=== PATIENT | female | born 1940 | race Caucasian/White ===

== ENCOUNTER 2016-07-15 19:45 | Inpatient (IN) | payer OTHER ==
[~2016-07-15] VITALS: Ht 162.6 cm; Wt 75.5 kg
[~2016-07-15 19:45] MED LIST: DICL100G8 EXT; HYDR12.53 PO; HYDR200T PO; LOSA1TAB16 PO; LOVA20TA2 PO; METF10002 PO; OMEP-110 PO; VIT1CAPS10 PO
[2016-07-15] MEDS ORDERED: LEVO500T33 PO (20:15)
[2016-07-15] MEDS ORDERED: CEFT1VIA6 IM (20:18)
[2016-07-15] MEDS ORDERED: SPIR50TA2 PO (20:18)
[2016-07-15] MEDS ORDERED: VIT1TABL32 PO (20:18)
[2016-07-15] MEDS ORDERED: GUAI600T53 PO (20:27)
[2016-07-15] MEDS ORDERED: OMEP-110 PO (20:27)
[2016-07-15] MEDS ORDERED: CHOL500014 PO (20:27)
[2016-07-15] MEDS ORDERED: IPRA3AMP INH (20:27)
[2016-07-15] MEDS ORDERED: SODI453. PO (20:27)
[2016-07-15] MEDS ORDERED: NYST1000 PO (20:27)
[2016-07-15] MEDS ORDERED: SENN-31 PO (20:27)
[2016-07-15] MEDS ORDERED: CYAN250013 PO (20:27)
[2016-07-15] MEDS ORDERED: VANCOMYCIN PMX 1GM/200ML 200 ML IVPB ONE (20:30)
[2016-07-15] MEDS ORDERED: PIPERACILLIN/TAZO/PMX 3.375GM 50 ML IVPB ONE (20:30)
[2016-07-15] MEDS ORDERED: VANCOMYCIN PER PHARMACY IV ONE (20:30)
[2016-07-15] MEDS ORDERED: SODIUM CHLORIDE FLUSH 10ML SYR IVF ONE (20:30)
[2016-07-15] MEDS ORDERED: PIPERACILLIN/TAZO/PMX 3.375GM 50 ML ONE (20:35)
[2016-07-15 21:14] LABS: HEMOGLOBIN 11.8 g/dL (11.7-16.4)
[2016-07-15 21:27] LABS: BLOOD UREA NITROGEN 35 mg/dL (7-18)
[2016-07-15 21:35] LABS: IS PT STATUS REG ER OR PRE ER? YES
[2016-07-15] MEDS ORDERED: VANCOMYCIN PER PHARMACY MC PRN (22:30)
[2016-07-15] MEDS ORDERED: FUROSEMIDE 40 MG/4 ML IV ONE (22:30)
[2016-07-15] MEDS ORDERED: POTASSIUM CHLORIDE 20 MEQ TAB.ER.PRT PO ONE (22:30)
[2016-07-15] MEDS ORDERED: MORPHINE SULFATE 4 MG/ML, 1ML IVPush PRN (23:00)
[2016-07-15] MEDS ORDERED: PROMETHAZINE 25 MG/ML, 1ML IM PRN (23:00)
[2016-07-15] MEDS ORDERED: ACETAMINOPHEN 325 MG TABLET PO PRN (23:00)
[2016-07-15] MEDS ORDERED: ONDANSETRON 2MG/ML, 2ML IVP PRN (23:00)
[2016-07-15] MEDS ORDERED: OXYcodone IR 5MG TABLET PO PRN (23:00)
[2016-07-15] MEDS ORDERED: ZOLPIDEM 5MG TABLET PO PRN (23:00)
[2016-07-15] MEDS ORDERED: ENOXAPARIN 40 MG/0.4 ML SQ SCH (23:00)
[2016-07-15 23:17] VITALS: BP 155/75
[2016-07-15] MEDS ORDERED: PHARMACOKINETIC CONSULTATION MC ONE (23:45)
[2016-07-15] MEDS ORDERED: PHARMACOKINETIC MONITORING MC PRN (23:45)
[2016-07-16] MEDS: PIPERACILLIN/TAZO/PMX 4.5GM 100 ML IV SCH ×4 (00:24→19:47)
[2016-07-16 02:02] VITALS: BP 108/61
[2016-07-16 04:27] VITALS: BP 155/75
[2016-07-16 04:57] LABS: HEMOGLOBIN 12.2 g/dL (11.7-16.4)
[2016-07-16 05:11] LABS: BLOOD UREA NITROGEN 36 mg/dL (7-18)
[2016-07-16 05:14] LABS: ASPARTATE AMINO TRANSFERASE 31 U/L (15-37)
[2016-07-16 07:18] VITALS: BP 91/47
[2016-07-16] MEDS ORDERED: POTASSIUM CHLORIDE 20 MEQ TAB.ER.PRT PO SCH (08:00)
[2016-07-16] MEDS ORDERED: SODIUM BICARBONATE 4.2%, 5ML ONE (08:00)
[2016-07-16] MEDS ORDERED: LIDOCAINE 2%, 20ML ONE (08:00)
[2016-07-16] MEDS ORDERED: NYSTATIN 500,000 UNITS/5 ML UDC PO SCH (09:00)
[2016-07-16] MEDS ORDERED: HYDROCHLOROTHIAZIDE 12.5 MG CAPSULE PO SCH (09:00)
[2016-07-16] MEDS: GUAIFENESIN ER 600 MG TABLET PO SCH ×3 (09:00→22:04)
[2016-07-16] MEDS ORDERED: FUROSEMIDE 40 MG/4 ML IV SCH (09:00)
[2016-07-16 09:27] LABS: CYTOLOGY BODY FLUID RECD INTO PATHOLOGY; CYTOLOGY BODY FLUID SOURCE PLEURAL FLUID
[2016-07-16] MEDS: HYDROXYCHLOROQUINE 200 MG TABLET PO SCH (11:03)
[2016-07-16] MEDS: OMEPRAZOLE 20 MG CAPSULE.DR PO SCH ×2 (11:03→22:04)
[2016-07-16] MEDS: SENNA/DOCUSATE TABLET PO SCH (11:04)
[2016-07-16] MEDS: SODIUM CHLORIDE FLUSH 10ML SYR IVF SCH ×2 (11:22→21:00)
[2016-07-16 13:30] VITALS: BP 87/54
[2016-07-16 17:05] LABS: CYTOLOGY BODY FLUID RECD INTO PATHOLOGY; CYTOLOGY BODY FLUID SOURCE PERITONEAL FLUID
[2016-07-16 19:14] VITALS: BP 91/60
[2016-07-16] MEDS: VANCOMYCIN 1,300 MG in SODIUM CHLORIDE 0.9% 250 ML IV SCH (22:56)
[2016-07-17] MEDS: PIPERACILLIN/TAZO/PMX 4.5GM 100 ML IV SCH ×4 (00:39→20:32)
[2016-07-17 02:00] VITALS: BP 91/57
[2016-07-17 04:47] LABS: HEMOGLOBIN 11.4 g/dL (11.7-16.4)
[2016-07-17 04:55] LABS: ASPARTATE AMINO TRANSFERASE 27 U/L (15-37); BLOOD UREA NITROGEN 44 mg/dL (7-18)
[2016-07-17 05:08] VITALS: BP_SYST 89; BP_SYST 92; BP_DIAS 56; BP_DIAS 59
[2016-07-17] MEDS ORDERED: SODIUM CHLORIDE 0.9%, 500ML IVBOLUS ONE (06:00)
[2016-07-17 07:20] VITALS: BP 91/55
[2016-07-17] MEDS: GUAIFENESIN ER 600 MG TABLET PO SCH ×2 (08:16→20:34)
[2016-07-17] MEDS: OMEPRAZOLE 20 MG CAPSULE.DR PO SCH ×2 (08:16→20:34)
[2016-07-17] MEDS: HYDROXYCHLOROQUINE 200 MG TABLET PO SCH (08:16)
[2016-07-17] MEDS: SODIUM CHLORIDE FLUSH 10ML SYR IVF SCH ×2 (08:17→20:32)
[2016-07-17] MEDS: SENNA/DOCUSATE TABLET PO SCH (08:17)
[2016-07-17] MEDS ORDERED: SODIUM CHLORIDE 0.9% 500 ML IV SCH (08:30)
[2016-07-17] MEDS: SODIUM CHLORIDE 0.9% 1,000 ML IV SCH (10:25)
[2016-07-17 13:33] VITALS: BP 102/63
[2016-07-17 17:46] VITALS: BP 98/59
[2016-07-17 19:25] VITALS: BP 108/68
[2016-07-17] MEDS: CHOLESTYRAMINE LIGHT 4GM PACKET PO SCH ×2 (20:32→21:00)
[2016-07-17] MEDS: ENOXAPARIN 30 MG/0.3 ML SQ SCH (22:37)
[2016-07-18 01:18] VITALS: BP 113/73
[2016-07-18] MEDS: PIPERACILLIN/TAZO/PMX 4.5GM 100 ML IV SCH ×4 (01:51→19:53)
[2016-07-18] MEDS: SODIUM CHLORIDE 0.9% 1,000 ML IV SCH ×3 (01:51→22:29)
[2016-07-18 05:33] LABS: HEMOGLOBIN 10.8 g/dL (11.7-16.4)
[2016-07-18 05:43] LABS: BLOOD UREA NITROGEN 51 mg/dL (7-18)
[2016-07-18 06:33] VITALS: BP 103/69
[2016-07-18] MEDS: GUAIFENESIN ER 600 MG TABLET PO SCH ×2 (08:07→19:54)
[2016-07-18] MEDS: HYDROXYCHLOROQUINE 200 MG TABLET PO SCH (08:08)
[2016-07-18] MEDS: SENNA/DOCUSATE TABLET PO SCH (08:08)
[2016-07-18] MEDS: OMEPRAZOLE 20 MG CAPSULE.DR PO SCH ×2 (08:08→19:53)
[2016-07-18] MEDS ORDERED: CHOLESTYRAMINE LIGHT 4GM PACKET PO SCH (09:00)
[2016-07-18] MEDS: VANCOMYCIN 1,300 MG in SODIUM CHLORIDE 0.9% 250 ML IV SCH (10:00)
[2016-07-18] MEDS: CHOLESTYRAMINE LIGHT 4GM PACKET PO SCH ×2 (11:15→19:54)
[2016-07-18] MEDS: SODIUM CHLORIDE FLUSH 10ML SYR IVF SCH ×2 (11:15→19:53)
[2016-07-18 12:14] VITALS: BP 91/60
[2016-07-18 18:48] VITALS: BP 103/65
[2016-07-18] MEDS: ENOXAPARIN 30 MG/0.3 ML SQ SCH (22:29)
[2016-07-19 01:20] VITALS: BP 110/69
[2016-07-19] MEDS: PIPERACILLIN/TAZO/PMX 4.5GM 100 ML IV SCH ×3 (02:05→14:02)
[2016-07-19 04:45] LABS: HEMOGLOBIN 11.2 g/dL (11.7-16.4)
[2016-07-19 05:05] LABS: BLOOD UREA NITROGEN 46 mg/dL (7-18)
[2016-07-19 06:30] VITALS: BP 107/67
[2016-07-19] MEDS ORDERED: LOPERAMIDE 2 MG CAPSULE PO ONE (08:00)
[2016-07-19] MEDS: SODIUM CHLORIDE 0.9% 1,000 ML IV SCH ×2 (08:06→19:49)
[2016-07-19] MEDS: HYDROXYCHLOROQUINE 200 MG TABLET PO SCH (08:07)
[2016-07-19] MEDS: SODIUM CHLORIDE FLUSH 10ML SYR IVF SCH ×2 (08:07→19:49)
[2016-07-19] MEDS: OMEPRAZOLE 20 MG CAPSULE.DR PO SCH ×2 (08:08→22:24)
[2016-07-19] MEDS: SENNA/DOCUSATE TABLET PO SCH (08:08)
[2016-07-19] MEDS: GUAIFENESIN ER 600 MG TABLET PO SCH ×2 (08:08→22:23)
[2016-07-19] MEDS: POTASSIUM CHLORIDE 20 MEQ TAB.ER.PRT PO SCH ×3 (10:27→22:23)
[2016-07-19] MEDS: CHOLESTYRAMINE LIGHT 4GM PACKET PO SCH ×2 (11:47→22:24)
[2016-07-19 13:03] VITALS: BP 108/72
[2016-07-19 19:20] VITALS: BP 101/64
[2016-07-19] MEDS: PIPERACILLIN/TAZO/PMX 3.375GM 50 ML IV SCH (19:49)
[2016-07-19] MEDS: ENOXAPARIN 30 MG/0.3 ML SQ SCH (22:24)
[2016-07-20 00:42] VITALS: BP 99/66
[2016-07-20] MEDS: PIPERACILLIN/TAZO/PMX 3.375GM 50 ML IV SCH ×4 (02:46→20:00)
[2016-07-20 05:07] LABS: HEMOGLOBIN 11.8 g/dL (11.7-16.4)
[2016-07-20] MEDS: SODIUM CHLORIDE 0.9% 1,000 ML IV SCH ×2 (05:13→15:00)
[2016-07-20 05:18] LABS: ASPARTATE AMINO TRANSFERASE 25 U/L (15-37); BLOOD UREA NITROGEN 39 mg/dL (7-18)
[2016-07-20 06:45] VITALS: BP 100/66
[2016-07-20] MEDS: SODIUM CHLORIDE FLUSH 10ML SYR IVF SCH ×2 (09:00→20:00)
[2016-07-20] MEDS: SENNA/DOCUSATE TABLET PO SCH (09:00)
[2016-07-20] MEDS: POTASSIUM CHLORIDE 20 MEQ TAB.ER.PRT PO SCH ×2 (10:45→19:59)
[2016-07-20] MEDS: GUAIFENESIN ER 600 MG TABLET PO SCH ×2 (10:45→20:00)
[2016-07-20] MEDS: OMEPRAZOLE 20 MG CAPSULE.DR PO SCH ×2 (10:46→20:00)
[2016-07-20] MEDS: HYDROXYCHLOROQUINE 200 MG TABLET PO SCH (10:46)
[2016-07-20] MEDS: CHOLESTYRAMINE LIGHT 4GM PACKET PO SCH ×2 (10:46→20:01)
[2016-07-20] MEDS ORDERED: VANCOMYCIN 1,400 MG in SODIUM CHLORIDE 0.9% 250 ML IV ONE (11:00)
[2016-07-20] MEDS: LOPERAMIDE 2 MG CAPSULE PO PRN (11:57)
[2016-07-20] MEDS ORDERED: SODIUM BICARBONATE 4.2%, 5ML ONE (12:26)
[2016-07-20] MEDS ORDERED: LIDOCAINE 1%, 20ML ONE (12:26)
[2016-07-20 14:39] VITALS: BP 102/69
[2016-07-20] MEDS ORDERED: MAGNESIUM SULFATE PMX 2GM/50ML 50 ML IV ONE (15:30)
[2016-07-20 18:30] VITALS: BP 108/69
[2016-07-20] MEDS: ALBUMIN HUMAN 25% 100 ML IV SCH (22:20)
[2016-07-20] MEDS: ENOXAPARIN 30 MG/0.3 ML SQ SCH (22:21)
[2016-07-21 01:30] VITALS: BP 92/59
[2016-07-21] MEDS: SODIUM CHLORIDE 0.9% 1,000 ML IV SCH ×3 (01:52→23:19)
[2016-07-21] MEDS: PIPERACILLIN/TAZO/PMX 3.375GM 50 ML IV SCH ×4 (01:53→20:54)
[2016-07-21 06:17] LABS: ASPARTATE AMINO TRANSFERASE 19 U/L (15-37); BLOOD UREA NITROGEN 37 mg/dL (7-18)
[2016-07-21 06:33] VITALS: BP 111/72
[2016-07-21] MEDS: SENNA/DOCUSATE TABLET PO SCH (09:00)
[2016-07-21] MEDS: FUROSEMIDE 20 MG/2 ML IV SCH ×2 (09:00)
[2016-07-21] MEDS: POTASSIUM CHLORIDE 20 MEQ TAB.ER.PRT PO SCH ×2 (09:10→17:56)
[2016-07-21] MEDS: GUAIFENESIN ER 600 MG TABLET PO SCH ×2 (09:10→20:55)
[2016-07-21] MEDS: SODIUM CHLORIDE FLUSH 10ML SYR IVF SCH ×2 (09:11→20:55)
[2016-07-21] MEDS: HYDROXYCHLOROQUINE 200 MG TABLET PO SCH (09:11)
[2016-07-21] MEDS: OMEPRAZOLE 20 MG CAPSULE.DR PO SCH ×2 (09:11→23:19)
[2016-07-21] MEDS: CHOLESTYRAMINE LIGHT 4GM PACKET PO SCH ×2 (10:20→20:55)
[2016-07-21] MEDS: ALBUMIN HUMAN 25% 100 ML IV SCH (10:20)
[2016-07-21] MEDS: LOPERAMIDE 2 MG CAPSULE PO PRN (11:17)
[2016-07-21] MEDS ORDERED: LIDOCAINE 2%, 20ML ONE (12:14)
[2016-07-21] MEDS ORDERED: SODIUM BICARBONATE 4.2%, 5ML ONE (12:14)
[2016-07-21 13:40] VITALS: BP 103/68
[2016-07-21 19:50] VITALS: BP 107/72
[2016-07-21] MEDS: ENOXAPARIN 40 MG/0.4 ML SQ SCH (20:54)
[2016-07-22] MEDS: PIPERACILLIN/TAZO/PMX 3.375GM 50 ML IV SCH ×4 (01:53→21:14)
[2016-07-22 02:00] VITALS: BP 101/63
[2016-07-22 04:54] LABS: HEMOGLOBIN 10.4 g/dL (11.7-16.4)
[2016-07-22 06:28] LABS: BLOOD UREA NITROGEN 31 mg/dL (7-18)
[2016-07-22 06:51] VITALS: BP 113/69
[2016-07-22] MEDS: SENNA/DOCUSATE TABLET PO SCH (09:00)
[2016-07-22] MEDS ORDERED: VANCOMYCIN PMX 1GM/200ML 200 ML IVPB ONE (09:00)
[2016-07-22] MEDS: OMEPRAZOLE 20 MG CAPSULE.DR PO SCH ×2 (09:27→21:14)
[2016-07-22] MEDS: SODIUM CHLORIDE 0.9% 1,000 ML IV SCH ×2 (09:27→21:29)
[2016-07-22] MEDS: LOPERAMIDE 2 MG CAPSULE PO PRN ×2 (09:27→16:10)
[2016-07-22] MEDS: CHOLESTYRAMINE LIGHT 4GM PACKET PO SCH ×2 (09:27→19:38)
[2016-07-22] MEDS: HYDROXYCHLOROQUINE 200 MG TABLET PO SCH (09:28)
[2016-07-22] MEDS: POTASSIUM CHLORIDE 20 MEQ TAB.ER.PRT PO SCH ×2 (09:28→16:08)
[2016-07-22] MEDS: SODIUM CHLORIDE FLUSH 10ML SYR IVF SCH ×2 (09:28→21:15)
[2016-07-22] MEDS: GUAIFENESIN ER 600 MG TABLET PO SCH ×2 (09:28→21:14)
[2016-07-22] MEDS: ALBUMIN HUMAN 25% 100 ML IV SCH (11:02)
[2016-07-22 12:20] VITALS: BP 117/68
[2016-07-22] MEDS: FUROSEMIDE 20 MG/2 ML IV SCH (12:28)
[2016-07-22 15:26] VITALS: BP 112/71
[2016-07-22 19:31] VITALS: BP 124/74
[2016-07-22] MEDS: ENOXAPARIN 40 MG/0.4 ML SQ SCH (21:14)
[2016-07-22] MEDS: LORazepam 0.5MG TABLET PO PRN (21:14)
[2016-07-23] MEDS: PIPERACILLIN/TAZO/PMX 3.375GM 50 ML IV SCH ×4 (03:01→21:43)
[2016-07-23 03:07] VITALS: BP 130/82
[2016-07-23 04:37] LABS: BLOOD UREA NITROGEN 23 mg/dL (7-18)
[2016-07-23 06:38] VITALS: BP 131/83
[2016-07-23] MEDS: SODIUM CHLORIDE 0.9% 1,000 ML IV SCH (07:00)
[2016-07-23] MEDS: SENNA/DOCUSATE TABLET PO SCH (07:27)
[2016-07-23] MEDS: ALBUMIN HUMAN 25% 100 ML IV SCH (07:38)
[2016-07-23] MEDS: POTASSIUM CHLORIDE 20 MEQ TAB.ER.PRT PO SCH ×2 (07:39→16:01)
[2016-07-23] MEDS: OMEPRAZOLE 20 MG CAPSULE.DR PO SCH ×2 (07:39→21:43)
[2016-07-23] MEDS: HYDROXYCHLOROQUINE 200 MG TABLET PO SCH (07:39)
[2016-07-23] MEDS: GUAIFENESIN ER 600 MG TABLET PO SCH ×2 (07:39→21:54)
[2016-07-23] MEDS: SODIUM CHLORIDE FLUSH 10ML SYR IVF SCH ×2 (07:40→21:00)
[2016-07-23] MEDS: CHOLESTYRAMINE LIGHT 4GM PACKET PO SCH ×2 (09:17→21:45)
[2016-07-23] MEDS: FUROSEMIDE 20 MG/2 ML IV SCH (09:17)
[2016-07-23] MEDS: GUAIFENESIN/DM 200-20MG, 10ML UDC PO PRN (10:19)
[2016-07-23] MEDS ORDERED: LORazepam 1MG TABLET ONE (12:23)
[2016-07-23] MEDS: LORazepam 0.5MG TABLET PO PRN ×2 (12:26→21:54)
[2016-07-23 14:14] VITALS: BP 132/80
[2016-07-23 18:41] VITALS: BP 131/72
[2016-07-23] MEDS: ENOXAPARIN 40 MG/0.4 ML SQ SCH (21:45)
[2016-07-24] MEDS: PIPERACILLIN/TAZO/PMX 3.375GM 50 ML IV SCH ×4 (03:28→21:45)
[2016-07-24 03:47] VITALS: BP 127/80
[2016-07-24] MEDS: GUAIFENESIN/DM 200-20MG, 10ML UDC PO PRN (03:54)
[2016-07-24] MEDS: LORazepam 0.5MG TABLET PO PRN ×3 (03:54→20:11)
[2016-07-24 05:17] LABS: BLOOD UREA NITROGEN 21 mg/dL (7-18)
[2016-07-24 06:42] VITALS: BP 117/74
[2016-07-24] MEDS: SENNA/DOCUSATE TABLET PO SCH (08:06)
[2016-07-24] MEDS: FUROSEMIDE 20 MG/2 ML IV SCH ×3 (09:00→22:24)
[2016-07-24] MEDS: POTASSIUM CHLORIDE 20 MEQ TAB.ER.PRT PO SCH ×2 (09:08→16:21)
[2016-07-24] MEDS: HYDROXYCHLOROQUINE 200 MG TABLET PO SCH (09:09)
[2016-07-24] MEDS: GUAIFENESIN ER 600 MG TABLET PO SCH ×2 (09:09→20:11)
[2016-07-24] MEDS: OMEPRAZOLE 20 MG CAPSULE.DR PO SCH ×2 (09:09→20:11)
[2016-07-24] MEDS: SODIUM CHLORIDE FLUSH 10ML SYR IVF SCH ×2 (09:10→20:11)
[2016-07-24] MEDS: CHOLESTYRAMINE LIGHT 4GM PACKET PO SCH ×2 (10:30→20:11)
[2016-07-24 13:20] VITALS: BP 124/72
[2016-07-24 18:34] VITALS: BP 151/86
[2016-07-24] MEDS: ENOXAPARIN 40 MG/0.4 ML SQ SCH (21:45)
[2016-07-25 01:58] VITALS: BP 125/76
[2016-07-25 02:58] VITALS: BP 121/73
[2016-07-25] MEDS: PIPERACILLIN/TAZO/PMX 3.375GM 50 ML IV SCH ×3 (03:47→12:32)
[2016-07-25 05:04] LABS: ASPARTATE AMINO TRANSFERASE 21 U/L (15-37); BLOOD UREA NITROGEN 21 mg/dL (7-18)
[2016-07-25] MEDS: GUAIFENESIN ER 600 MG TABLET PO SCH ×2 (08:36→19:45)
[2016-07-25] MEDS: OMEPRAZOLE 20 MG CAPSULE.DR PO SCH ×2 (08:37→19:45)
[2016-07-25] MEDS: POTASSIUM CHLORIDE 20 MEQ TAB.ER.PRT PO SCH (08:38)
[2016-07-25] MEDS: SODIUM CHLORIDE FLUSH 10ML SYR IVF SCH ×2 (08:38→19:46)
[2016-07-25] MEDS: HYDROXYCHLOROQUINE 200 MG TABLET PO SCH (08:44)
[2016-07-25 08:51] VITALS: BP 117/63
[2016-07-25] MEDS: SENNA/DOCUSATE TABLET PO SCH (08:58)
[2016-07-25] MEDS: CHOLESTYRAMINE LIGHT 4GM PACKET PO SCH ×2 (10:33→19:45)
[2016-07-25] MEDS ORDERED: LIDOCAINE 1%, 20ML ONE ×2 (10:51→11:31)
[2016-07-25] MEDS ORDERED: SODIUM BICARBONATE 4.2%, 5ML ONE ×2 (10:51→11:31)
[2016-07-25 12:25] VITALS: BP 114/70
[2016-07-25] MEDS ORDERED: MORPHINE SULFATE 4 MG/ML, 1ML IVPush PRN (14:00)
[2016-07-25] MEDS: GUAIFENESIN/DM 200-20MG, 10ML UDC PO PRN ×2 (16:11→22:37)
[2016-07-25] MEDS ORDERED: LORazepam 1MG TABLET ONE (16:29)
[2016-07-25] MEDS: LORazepam 0.5MG TABLET PO PRN (16:35)
[2016-07-25] MEDS: ENOXAPARIN 40 MG/0.4 ML SQ SCH (19:49)
[2016-07-26 02:28] VITALS: BP 123/78
[2016-07-26 06:40] VITALS: BP 112/76
[2016-07-26] MEDS: OMEPRAZOLE 20 MG CAPSULE.DR PO SCH (08:00)
[2016-07-26] MEDS: SODIUM CHLORIDE FLUSH 10ML SYR IVF SCH (08:05)
[2016-07-26] MEDS: CHOLESTYRAMINE LIGHT 4GM PACKET PO SCH (09:00)
[2016-07-26] MEDS: FUROSEMIDE 20 MG/2 ML IV SCH (09:00)
[2016-07-26] MEDS: SENNA/DOCUSATE TABLET PO SCH (09:00)
[2016-07-26] MEDS ORDERED: LORazepam 1MG TABLET ONE (10:03)
[2016-07-26] MEDS: LORazepam 0.5MG TABLET PO PRN (10:06)
[2016-07-26] MEDS: GUAIFENESIN ER 600 MG TABLET PO SCH (10:07)
[2016-07-26] MEDS: GUAIFENESIN/DM 200-20MG, 10ML UDC PO PRN (10:23)
[2016-07-26 14:00] VITALS: BP 104/67
== END 2016-07-26 14:40 | disposition hospice, home (50) | DRG 374 ==
LOC: ED 21:45 → EDIP 21:59 → SUATTDRO 22:16 → 3NW 22:42
PROVIDERS: ATTEND Internal Medicine
PROC: 0W9B3ZX Drainage of Left Pleural Cavity, Percutaneous Approach, Diagnostic (ICD-10-PCS; principal; 2016-07-16)
PROC: 0W9G3ZX Drainage of Peritoneal Cavity, Percutaneous Approach, Diagnostic (ICD-10-PCS; 2016-07-16)
PROC: 0W993ZZ Drainage of Right Pleural Cavity, Percutaneous Approach (ICD-10-PCS; 2016-07-20)
PROC: 0W9G3ZX Drainage of Peritoneal Cavity, Percutaneous Approach, Diagnostic (ICD-10-PCS; 2016-07-21)
PROC: 0W9B3ZZ Drainage of Left Pleural Cavity, Percutaneous Approach (ICD-10-PCS; 2016-07-25)
PROC: 0W9G3ZZ Drainage of Peritoneal Cavity, Percutaneous Approach (ICD-10-PCS; 2016-07-26)
DX: C78.6 Secondary malignant neoplasm of retroperitoneum and peritoneum (principal); E43 Unspecified severe protein-calorie malnutrition; J96.21 Acute and chronic respiratory failure with hypoxia; J18.9 Pneumonia, unspecified organism; C56.9 Malignant neoplasm of unspecified ovary; R18.0 Malignant ascites; D68.9 Coagulation defect, unspecified; E87.1 Hypo-osmolality and hyponatremia; J91.0 Malignant pleural effusion; N17.9 Acute kidney failure, unspecified; Y95 Nosocomial condition; I10 Essential (primary) hypertension; E87.70 Fluid overload, unspecified; G89.29 Other chronic pain; K21.9 Gastro-esophageal reflux disease without esophagitis; K29.60 Other gastritis without bleeding; K29.80 Duodenitis without bleeding; Z51.5 Encounter for palliative care; Z66 Do not resuscitate; Z85.41 Personal history of malignant neoplasm of cervix uteri; Z68.28 Body mass index [BMI] 28.0-28.9, adult; Z87.01 Personal history of pneumonia (recurrent); Z85.43 Personal history of malignant neoplasm of ovary; Z87.891 Personal history of nicotine dependence
CPT/HCPCS: 32555; 36415; 49083; 71010; 76705; 80048; 80053; 80202; 82040; 82042; 83605; 83615; 83735; 83880; 83986; 84100; 84157; 84484; 85025; 85610; 85730; 87040; 87070; 87075; 87205; 87324; 88112; 88305; 89051; 93005; 93306; 96365; 96367; 96372; 96375; J1650; J1940; J2543; J3370; J3490; P9047; J3475; J7030; J7040; J7050